=== PATIENT | male | born 1990 | race Hispanic/Latino ===

== ENCOUNTER 2017-12-26 11:47 | Emergency (ER) | payer SELFPAY ==
[~2017-12-26] VITALS: Ht 172.7 cm; Wt 77.1 kg
[2017-12-26] MEDS ORDERED: KETOROLAC TROMETHAMINE 30 MG/ML VIAL IV STA (12:21)
[2017-12-26] MEDS ORDERED: DIAZEPAM 5 MG TAB PO STA (12:21)
[2017-12-26 12:38] LABS: BASOPHILS % 0.3 % (0.0-1.0); EOSINOPHILS # (AUTO) 0.1 (0.0-0.4); EOSINOPHILS % 1.3 % (0.0-6.0); HEMATOCRIT 37.3 % (38.2-49.6); LYMPHOCYTES # (AUTO) 1.4 (1.0-3.2); LYMPHOCYTES % 15.4 % (18.0-39.1); MEAN CORPUSCULAR HEMOGLOBIN 29.1 pg (28-32); MEAN CORPUSCULAR HGB CONC 34.9 g/dL (31-35); MEAN CORPUSCULAR VOLUME 83.4 fL (81-99); MONOCYTES # (AUTO) 0.5 (0.2-0.8); MONOCYTES % 5.6 % (4.4-11.3); NEUTROPHILS % 76.8 % (38.7-80.0); PLATELET COUNT 219 x10e3/uL (140-360); RED BLOOD COUNT 4.47 x10e6/uL (4.3-5.7); RED CELL DISTRIBUTION WIDTH 13.2 % (11.7-14.4)
[2017-12-26 12:51] LABS: ANION GAP 12.7 mmol/L (8-16); BLOOD UREA NITROGEN 11 mg/dL (7-26); BUN/CREATININE RATIO 16 (6-25); CALCIUM 9.1 mg/dL (8.4-10.2); CARBON DIOXIDE 24 mmol/L (22-29); CHLORIDE 111 mmol/L (98-107); CREATINE KINASE 81 IU/L (30-200); EST GLOMERULAR FILTRATION RATE > 60 ML/MIN (60-); GLUCOSE 118 mg/dL (74-118); MAGNESIUM 2.2 MG/DL (1.3-2.1); POTASSIUM 3.7 mmol/L (3.5-5.1); SODIUM 144 mmol/L (136-145)
[2017-12-26 13:37] LABS: BILIRUBIN,URINE NEGATIVE (NEGATIVE); CLARITY,URINE CLEAR (CLEAR); COLOR,URINE YELLOW (YELLOW); KETONES,URINE NEGATIVE (NEGATIVE); LEUKOCYTE ESTERASE ,URINE NEGATIVE (NEGATIVE); NITRITE,URINE NEGATIVE (NEGATIVE); PROTEIN,URINE DIPSTICK NEGATIVE (NEGATIVE); URINE UROBILINOGEN 0.2 mg/dL (0.2 - 1)
[2017-12-26 13:45] LABS: BACTERIA,URINE RARE /HPF; EPITHELIAL CELLS,URINE RARE /LPF; WBC,URINE (MAN) 0-5 /HPF (0-5)
[2017-12-26 13:46] LABS: MUCUS,URINE MODERATE (RARE)
--- NOTE | 2017-12-26 14:16 | Diagnostic Imaging Report ---
PROCEDURE: X-RAY CHEST, TWO VIEWS COMPARISON: None. INDICATIONS: POSTERIOR CHEST PAIN FINDINGS: LUNGS: No consolidations or edema. PLEURA: No effusions or pneumothorax. HEART \T\ MEDIASTINUM: The heart is within normal size-limits. BONES \T\ SOFT TISSUES: No acute findings. CONCLUSION: No acute thoracic abnormality. Dictated by: Aniket Small M.D. on 12/26/2017 at 14:20 Electronically approved by: Aniket Small M.D. on 12/26/2017 at 14:20
[2017-12-26 15:26] VITALS: BP 117/73
== END 2017-12-26 15:28 | disposition home or self-care (01) ==
LOC: ER 11:47
DX: M54.6 Pain in thoracic spine (principal); S23.3XXA Sprain of ligaments of thoracic spine, initial encounter; X58.XXXA Exposure to other specified factors, initial encounter; J45.909 Unspecified asthma, uncomplicated
CPT/HCPCS: 36415; 71046; 80048; 81001; 82550; 83735; 85025; 99284; J1885